=== PATIENT | male | born 1985 | race Caucasian/White ===

== ENCOUNTER 2024-05-29 16:47 | Emergency (ER) | payer BC, OTHER ==
[~2024-05-29] VITALS: Ht 177.8 cm; Wt 84.9 kg
[2024-05-29 20:39] VITALS: BP 124/84; RESP 16; TEMP 98.5; O2SAT 98
[2024-05-29 20:41] VITALS: PULSE 75
== END 2024-05-29 20:43 | disposition home or self-care (01) ==
LOC: ER 16:47
DX: S20.211A Contusion of right front wall of thorax, initial encounter (principal); V43.52XA Car driver injured in collision with other type car in traffic accident, initial encounter; Y93.89 Activity, other specified; Y92.89 Other specified places as the place of occurrence of the external cause; Y99.8 Other external cause status
CPT/HCPCS: 71046; 93005

== ENCOUNTER 2025-04-02 20:57 | Emergency (ER) | payer BC | END 2025-04-02 21:00 | disposition left against medical advice (07) | LOC: ER 20:57 → EEVIPCON 20:57 → ER 21:00 | DX: Z00.00 Encounter for general adult medical examination without abnormal findings (principal); Z53.21 Procedure and treatment not carried out due to patient leaving prior to being seen by health care provider ==